=== PATIENT | female | born 1945 ===

== ENCOUNTER 2018-07-07 12:54 | Emergency (ER) | payer MEDICARE ==
[2018-07-07 13:45] VITALS: BMI 28.2
[2018-07-07 13:52] VITALS: RESP 16
[2018-07-07] MEDS ORDERED: Tobramycin 0.3% OPHT SOLN OD STA (15:04)
--- NOTE | 2018-07-07 15:18 | ED PDOC ---
Arrival/HPI - General Chief Complaint: Eye Problem Time Seen by Provider: 07/07/18 14:37 Historian: Patient - History of Present Illness Narrative History of Present Illness (Text): 07/07/18 16:32 73 yo F c/o FB sensation to her R eye. States that she was "watching TV when something flew" into her R eye, since then has had the FB sensation with mild discomfort. Denies any fever, eye pain, headache, decrease in vision, d/c from eye, eye lid swelling or redness. Past Medical History - Tetanus Immunization Tetanus Immunization: Unknown - Past Medical History Past Medical History: No Previous - Cardiac Hx Pacemaker: No - Neurological Hx Paralysis: No - Hematological/Oncological Hx Blood Transfusions: No Hx Blood Transfusion Reaction: No - Musculoskeletal/Rheumatological Hx Musculoskeletal Disorders: No - Psychiatric Hx Emotional Abuse: No Hx Physical Abuse: No Hx Substance Use: No - Past Surgical History Past Surgical History: No Previous - Anesthesia Hx Anesthesia Reactions: No Hx Malignant Hyperthermia: No - Suicidal Assessment Feels Threatened In Home Enviroment: No Family/Social History Family/Social History: No Known Family HX Smoking Status: Never Smoked Hx Alcohol Use: No Hx Substance Use: No Allergies/Home Meds Allergies/Adverse Reactions: Allergies No Known Allergies Allergy (Verified 01/05/13 03:39) Home Medications: Home Meds Medication Instructions Recorded Confirmed traMADol [Ultram] 50 mg PO Q4 PRN 07/23/16 07/25/16 Review of Systems - Review of Systems Constitutional: absent: Fatigue, Fevers Eyes: Eye Pain, Other (FB sensation in the eye). absent: Vision Changes, Photophobia Skin: absent: Rash, Pruritis Neurological: absent: Headache, Dizziness Physical Exam Vital Signs Temp Pulse Resp BP Pulse Ox 07/07/18 15:26 97.9 F 78 16 151/80 H 100 07/07/18 14:01 97.2 F L 72 16 133/59 L 98 07/07/18 13:45 97.2 F L 72 16 133/59 L 98 Temperature: Afebrile Blood Pressure: Normal Pulse: Regular Respiratory Rate: Normal Appearance: Positive for: Well-Appearing, Non-Toxic, Comfortable Pain Distress: None Mental Status: Positive for: Alert and Oriented X 3 - Systems Exam Pupils: Present: PERRL Extroacular Muscles: Present: EOMI, Other (eye lids appear normal without d/c, erythema or edema, no FB noted under the eyelid) Conjunctiva: Present: Injected, Other (+FB noted with possible rust ring at 7 o' clock of the cornea of the R eye) Ears: Present: Normal Mouth: Present: Moist Mucous Membranes Neurological: Present: GCS=15, CN II-XII Intact, Speech Normal, Motor Func Grossly Intact, Normal Sensory Function Skin: Present: Warm, Dry, Normal Color. No: Rashes Psychiatric: Present: Alert, Oriented x 3, Normal Insight, Normal Concentration Medical Decision Making ED Course and Treatment: 07/07/18 15:15 Plan : - tobramycin eye drops - consult with ophthalmology - visual acuity Patient noted to have a FB to the R cornea, unable to remove with Qtip or with 18 g needle. Patient advised that she will need to see an maturity checker for this. 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 Patient asked to reconsider, however she still wants to leave, states that she will follow up and call the eye doctor herself. Advised to follow up with ophthalmology referral provided in 1-2 days without fail. Patient instructed to call today and arrange follow up. Advised to take medication as prescribed. Return to the emergency room at any time for any new or worsening symptoms. Patient states she fully agrees with and understands discharge instructions. States that she agrees with the plan and disposition. Verbalized and repeated discharge instructions and plan. I have given the patient opportunity to ask any additional questions. - Medication Orders Current Medication Orders: Discontinued Medications Tobramycin Sulfate (Tobrex 0.3% Ophth Soln) 2 drop OD STAT STA Stop: 07/07/18 15:05 Last Admin: 07/07/18 15:12 Dose: 2 drop - PA / [facility]RA[facility] IN[employer]CTION / Resident Statement MD/DO has reviewed & agrees with the documentation as recorded. Disposition/Present on Arrival - Present on Arrival Any Indicators Present on Arrival: No History of DVT/PE: No History of Uncontrolled Diabetes: No Urinary Catheter: No History of Decub. Ulcer: No History Surgical Site Infection Following: None - Disposition Have Diagnosis and Disposition been Completed?: Yes Diagnosis: Foreign body in cornea Disposition: HOME/ ROUTINE Disposition Time: 10:00 Patient Plan: Discharge Condition: STABLE Discharge Instructions (ExitCare): Foreign Body in Eye (DC) Additional Instructions: Thank you for letting us take care of you today. You were treated for right eye corneal foreig. The emergency medical care you received today was directed at your acute symptoms. If you were prescribed any medication, please fill it and take as directed. It may take several days for your symptoms to resolve. Return to the Emergency Department if your symptoms worsen, do not improve, or if you have any other problems. Please contact Dr. Rodríguez (oophthalmologist) in 2 days for re-evaluation and follow up. Bring any paperwork you were given at discharge with you along with any medications you are taking to your follow up visit. Our treatment cannot replace ongoing medical care by a primary care provider (PCP) outside of the emergency department. Thank you for allowing the [facility] team to be part of your care today. Prescriptions: Tobramycin 0.3% [Tobrex 0.3% Ophth Soln] 2 drop OD QID #1 bottle Referrals: Belinda Rai MD [Primary Care Provider] - Follow up with primary Steve Rodríguez MD [Staff Provider] - Follow up with primary Forms: [employer] ([place])
[2018-07-07 15:28] VITALS: BP 151/80; PULSE 78; TEMP 97.9; O2SAT 100
== END 2018-07-07 15:26 | disposition home or self-care (01) ==
LOC: ED 12:54
DX: T15.01XA Foreign body in cornea, right eye, initial encounter (principal); X58.XXXA Exposure to other specified factors, initial encounter